=== PATIENT | male | born 1955 | race Caucasian/White ===

== ENCOUNTER 2020-12-25 16:33 | Outpatient (CLI) | payer OTHER | END 2020-12-25 16:34 | disposition home or self-care (01) | LOC: COV 16:33 | PROVIDERS: ATTEND Radiology Radiation Oncology | DX: Z01.812 Encounter for preprocedural laboratory examination (principal); Z08 Encounter for follow-up examination after completed treatment for malignant neoplasm; Z85.818 Personal history of malignant neoplasm of other sites of lip, oral cavity, and pharynx; Z20.822 Contact with and (suspected) exposure to COVID-19 ==